=== PATIENT | female | born 1995 | race Caucasian/White ===

== ENCOUNTER 2023-10-08 12:16 | Emergency (ER) | payer BC, SELFPAY ==
[2023-10-08 12:25] VITALS: BP 133/77; PULSE 96; RESP 14; TEMP 36.9; O2SAT 99
--- NOTE | 2023-10-08 13:15 | ED.DENTAL ---
HPI - Dental/Oral General Chief complaint: Dental/Oral Stated complaint: R facial swelling/toothache Time Seen by Provider: 10/08/23 12:59 History of Present Illness HPI Narrative: Patient is a 28-year-old female who presents ER with right-sided facial swelling and dental pain. Began last night and woke up this morning with swelling. No difficulty breathing or swallowing. Has pain with eating. Tender above teeth #6 and 7. Review of Systems Constitutional: Constitutional: Denies chills and Denies fever(s) ENT: Comments: Right-sided facial swelling and dental pain PMFSH Past Medical History Medical History (Updated 10/08/23 @ 18:04 by Kenton Quan MD) Healthy female adult Surgical History Surgical History (Updated 10/08/23 @ 18:04 by Kenton Quan MD) No history of previous surgery Exam Narrative: GENERAL: Well-appearing, well-nourished, and in no acute distress. HEAD: Normocephalic, atraumatic. ENT: Mucous membranes moist. Swelling over the right maxillary region with tenderness along the buccal frenum. NECK: Supple. NEURO: Alert and oriented x3. PSYCH: Normal mood and affect. Course Course Emergency Course: Discussed treatment plan and diagnosis. Patient verbalized understanding. Vital Signs Vital signs: Vital Signs Temperature 98.4 F 10/08/23 12:25 Pulse Rate 96 10/08/23 12:25 Respiratory Rate 14 10/08/23 12:25 Blood Pressure 133/77 10/08/23 12:25 Pulse Oximetry 99 10/08/23 12:25 Oxygen Delivery Room Air 10/08/23 12:25 Temperature 98.4 F 10/08/23 12:25 Pulse Rate 96 10/08/23 12:25 Respiratory Rate 14 10/08/23 12:25 Blood Pressure 133/77 10/08/23 12:25 Pulse Oximetry 99 10/08/23 12:25 Oxygen Delivery Room Air 10/08/23 12:25 Discharge Plan Discharge Clinical Impression: Dental abscess Patient Disposition: Home, Self-Care Condition: Stable Instructions: Antibiotic Form, Dental Abscess (ED) Additional Instructions: Return the ER if you have worsening pain, you cannot keep down food or water, you have fever over 100.4 ?F, you have additional concerns. Prescriptions: New hydrocodone-acetaminophen 5-325 mg tablet 1 tablet PO Q6H PRN (Reason: pain) Qty: 10 0RF amoxicillin-pot clavulanate 875-125 mg tablet 1 tablet PO Q12H Qty: 20 0RF Follow-up/Referrals: Homer,Naina Novoa [Primary Care Provider] - 1 Week
== END 2023-10-08 13:31 | disposition home or self-care (01) ==
PROVIDERS: Emergency Provider Emergency Medicine; PCP Internal Medicine Infectious Disease
DX: K04.7 Periapical abscess without sinus (principal)
CPT/HCPCS: 99283